=== PATIENT | female | born 1940 | race Caucasian/White ===

== ENCOUNTER 2018-02-24 13:34 | Inpatient (IN) | payer MEDICARE ==
[~2018-02-24] VITALS: Ht 160 cm; Wt 56.2 kg
[~2018-02-24 13:34] MED LIST: ACET325T53 PO; ASPI-605 PO; ATOR10TA PO; DESV25TA PO; ENOX40DI SQ; ESZO3TAB27 PO; HYDR-3326 PO; HYDR-548 PO; MAGN400O6 PO; PANT40TA2 PO
[2018-02-24] MEDS ORDERED: Z GUARD REMEDY PASTE 57 GM TUBE TOP PRN (15:45)
[2018-02-24 16:34] VITALS: BP 115/79
[2018-02-24] MEDS: HYDROCODONE/APAP 10-325 MG TABLET PO PRN (18:25)
[2018-02-24] MEDS: MAGNESIUM HYDROXIDE 30 ML LIQUID UDC PO PRN (18:25)
[2018-02-24 20:08] VITALS: BP 122/77
[2018-02-24] MEDS: DOCUSATE SODIUM 100 MG CAPSULE PO SCH (21:04)
[2018-02-24] MEDS: ATORVASTATIN 10 MG TABLET PO SCH (21:04)
[2018-02-25 05:00] VITALS: BP 130/74
[2018-02-25] MEDS: PANTOPRAZOLE SODIUM 40 MG TABLET.DR PO SCH (06:39)
[2018-02-25] MEDS: ACETAMINOPHEN 325 MG TABLET PO PRN (06:41)
[2018-02-25 09:00] VITALS: BP 129/69
[2018-02-25] MEDS ORDERED: ENOXAPARIN SODIUM 40 MG/0.4 ML DISP.SYRIN SQ SCH (09:00)
[2018-02-25] MEDS: ASPIRIN EC 81 MG TABLET.DR PO SCH (09:09)
[2018-02-25] MEDS: HYDROCODONE/APAP 10-325 MG TABLET PO PRN ×2 (09:19→20:27)
[2018-02-25] MEDS ORDERED: LACTULOSE 20 G/30 ML LIQUID UDC PO PRN (16:00)
[2018-02-25 16:06] VITALS: BP 129/78
[2018-02-25] MEDS: SENNOSIDES 1 TABLET PO PRN (17:30)
[2018-02-25 19:36] VITALS: BP 136/72
[2018-02-25] MEDS: ATORVASTATIN 10 MG TABLET PO SCH (20:22)
[2018-02-25] MEDS: DOCUSATE SODIUM 100 MG CAPSULE PO SCH (20:32)
[2018-02-26 05:30] VITALS: BP 110/74
[2018-02-26] MEDS: PANTOPRAZOLE SODIUM 40 MG TABLET.DR PO SCH (06:15)
[2018-02-26] MEDS: ACETAMINOPHEN 325 MG TABLET PO PRN (06:16)
[2018-02-26] MEDS: SENNOSIDES 1 TABLET PO PRN (06:16)
[2018-02-26] MEDS: ASPIRIN EC 81 MG TABLET.DR PO SCH (09:19)
[2018-02-26] MEDS: HYDROCODONE/APAP 10-325 MG TABLET PO PRN ×2 (09:19→21:25)
[2018-02-26 09:23] VITALS: BP 115/74
[2018-02-26] MEDS: HYDROCODONE/APAP 5-325MG TABLET PO PRN (14:04)
[2018-02-26] MEDS: MAGNESIUM HYDROXIDE 30 ML LIQUID UDC PO PRN (14:04)
[2018-02-26 16:10] VITALS: BP 113/74
[2018-02-26] MEDS: RIVAROXABAN 10 MG TABLET PO SCH (17:49)
[2018-02-26 20:10] VITALS: BP 126/71
[2018-02-26] MEDS: DOCUSATE SODIUM 100 MG CAPSULE PO SCH (21:00)
[2018-02-26] MEDS: ATORVASTATIN 10 MG TABLET PO SCH (21:23)
[2018-02-27 05:00] VITALS: BP 117/66
[2018-02-27] MEDS: PANTOPRAZOLE SODIUM 40 MG TABLET.DR PO SCH (06:43)
[2018-02-27] MEDS: ASPIRIN EC 81 MG TABLET.DR PO SCH (08:12)
[2018-02-27 08:18] VITALS: BP 109/67
[2018-02-27] MEDS ORDERED: diphenhydrAMINE 1% CREAM 28.3 GM TUBE TP PRN (12:30)
[2018-02-27] MEDS: HYDROCODONE/APAP 5-325MG TABLET PO PRN ×2 (13:41→21:25)
[2018-02-27] MEDS: RIVAROXABAN 10 MG TABLET PO SCH (17:02)
[2018-02-27 20:09] VITALS: BP 125/74
[2018-02-27] MEDS: ATORVASTATIN 10 MG TABLET PO SCH (20:20)
[2018-02-27] MEDS: DOCUSATE SODIUM 100 MG CAPSULE PO SCH (20:20)
[2018-02-28] MEDS: HYDROCODONE/APAP 10-325 MG TABLET PO PRN ×3 (02:33→20:28)
[2018-02-28] MEDS: diphenhydrAMINE 1% CREAM 28.3 GM TUBE TP PRN (02:35)
[2018-02-28 03:35] VITALS: BP 114/75
[2018-02-28] MEDS: PANTOPRAZOLE SODIUM 40 MG TABLET.DR PO SCH (06:16)
[2018-02-28] MEDS: ACETAMINOPHEN 325 MG TABLET PO PRN (08:46)
[2018-02-28] MEDS: BISACODYL 5 MG TABLET.DR PO PRN (08:46)
[2018-02-28] MEDS: SENNOSIDES 1 TABLET PO PRN (08:47)
[2018-02-28] MEDS: ASPIRIN EC 81 MG TABLET.DR PO SCH (08:47)
[2018-02-28 09:01] VITALS: BP 105/71
[2018-02-28 12:45] LABS: EOSINOPHILS # (AUTO) 0.2 K/uL (0.0-0.7); LYMPHOCYTES # (AUTO) 1.9 K/uL (20.0-40.0); MONOCYTES % (AUTO) 9.4 % (0.0-11.0); RED BLOOD CELL COUNT(AUTO) 3.58 MIL/uL (3.63-4.92)
[2018-02-28 12:47] LABS: ALANINE AMINOTRANSFERASE 106 U/L (14-59); ALKALINE PHOSPHATASE 51 U/L (50-136); ASPARTATE AMINOTRANSFERASE 54 U/L (15-37); BILIRUBIN,TOTAL 0.4 mg/dL (0.2-1.0); CARBON DIOXIDE 29 mmol/L (21-32); CHLORIDE 107 mmol/L (98-107); CREATININE 0.6 mg/dL (0.6-1.3); GLUCOSE 171 mg/dL (74-106); PHOSPHOROUS 3.8 mg/dL (2.5-4.9); POTASSIUM 4.8 mmol/L (3.5-5.1); TOTAL PROTEIN, SERUM 5.8 g/dL (6.4-8.2); UREA NITROGEN, BLOOD 16 mg/dL (7-18)
[2018-02-28 13:21] LABS: BASOPHILS % (AUTO) 0.3 % (0.0-2.0); EOSINOPHILS % (AUTO) 1.6 % (0.0-7.0); HEMATOCRIT 33.6 % (31.2-41.9); HEMOGLOBIN 11.4 g/dL (10.9-14.3); LYMPHOCYTES % (AUTO) 17.1 % (20.5-51.5); MEAN CORPUSCULAR HEMOGLOBIN 31.9 uug (24.7-32.8); MEAN CORPUSCULAR HGB CONC 34 g/dL (32.3-35.6); MEAN CORPUSCULAR VOLUME 93.8 fL (75.5-95.3); NEUTROPHILS % (AUTO) 71.6 % (38.5-71.5); WHITE BLOOD COUNT (AUTO) 11.1 K/uL (3.8-11.8)
[2018-02-28 13:22] LABS: PLATELET COUNT (AUTO) 411 K/uL (179-408)
[2018-02-28 15:46] VITALS: BP 111/51
[2018-02-28 16:35] LABS: THYROID STIMULATING HORMONE 2.24 mIU/mL (0.358-3.740)
[2018-02-28] MEDS: RIVAROXABAN 10 MG TABLET PO SCH (17:12)
[2018-02-28 20:18] VITALS: BP 125/65
[2018-02-28] MEDS: ATORVASTATIN 10 MG TABLET PO SCH (20:27)
[2018-02-28] MEDS: DOCUSATE SODIUM 100 MG CAPSULE PO SCH (20:27)
[2018-03-01] MEDS: ACETAMINOPHEN 325 MG TABLET PO PRN ×2 (04:17→14:50)
[2018-03-01 05:21] VITALS: BP 109/64
[2018-03-01] MEDS: PANTOPRAZOLE SODIUM 40 MG TABLET.DR PO SCH (06:13)
[2018-03-01] MEDS: ASPIRIN EC 81 MG TABLET.DR PO SCH (09:08)
[2018-03-01 09:38] VITALS: BP 96/63
[2018-03-01] MEDS: HYDROCODONE/APAP 5-325MG TABLET PO PRN (09:55)
[2018-03-01] MEDS: BISACODYL 5 MG TABLET.DR PO PRN (09:55)
[2018-03-01 10:37] LABS: *BILIRUBIN,URIN NEGATIVE (NEGATIVE); *BLOOD, URINE 3+ (NEGATIVE); *CLARITY,URINE CLOUDY (CLEAR); *COLOR,URINE YELLOW (YELLOW); *KETONES,URINE NEGATIVE (NEGATIVE); *PROTEIN,URINE 1+ (NEGATIVE); *UROBILINOGEN,URINE 0.2 E.U./dl (NORMAL); LEUKOCYTE ESTERASE ,URINE 3+ (NEGATIVE); NITRITE, URINE NEGATIVE (NEGATIVE); UGLUCOSE NEGATIVE (NEGATIVE)
[2018-03-01 10:51] LABS: SQUAMOUS EPITHELIAL CELL,UR FEW /HPF (NONE SEEN); WBC,URINE TNTC /HPF (0-3)
[2018-03-01 10:52] LABS: BACTERIA,URINE MODERATE /HPF (NONE SEEN)
[2018-03-01] MEDS: CLOTRIMAZOLE 1% CREAM 30 GM TUBE TOP SCH ×2 (12:11→20:37)
[2018-03-01 15:47] VITALS: BP 117/83
[2018-03-01] MEDS: RIVAROXABAN 10 MG TABLET PO SCH (17:11)
[2018-03-01] MEDS: HYDROCODONE/APAP 10-325 MG TABLET PO PRN (20:28)
[2018-03-01] MEDS: DOCUSATE SODIUM 100 MG CAPSULE PO SCH (20:28)
[2018-03-01] MEDS: ATORVASTATIN 10 MG TABLET PO SCH (20:28)
[2018-03-01] MEDS: diphenhydrAMINE 1% CREAM 28.3 GM TUBE TP PRN (20:30)
[2018-03-01 20:34] VITALS: BP 116/59
[2018-03-02] MEDS: ACETAMINOPHEN 325 MG TABLET PO PRN (03:52)
[2018-03-02 05:00] VITALS: BP 111/62
[2018-03-02] MEDS: PANTOPRAZOLE SODIUM 40 MG TABLET.DR PO SCH (06:06)
[2018-03-02 08:00] VITALS: BP 106/80
[2018-03-02] MEDS: HYDROCODONE/APAP 5-325MG TABLET PO PRN (08:32)
[2018-03-02] MEDS: ASPIRIN EC 81 MG TABLET.DR PO SCH (08:32)
[2018-03-02] MEDS: CLOTRIMAZOLE 1% CREAM 30 GM TUBE TOP SCH ×2 (08:33→20:38)
[2018-03-02 16:00] VITALS: BP 119/62
[2018-03-02] MEDS: RIVAROXABAN 10 MG TABLET PO SCH (17:14)
[2018-03-02 19:49] VITALS: BP 157/71
[2018-03-02] MEDS ORDERED: LEVOFLOXACIN 500 MG TABLET PO ONE (20:00)
[2018-03-02] MEDS: ATORVASTATIN 10 MG TABLET PO SCH (20:38)
[2018-03-02] MEDS: ACIDOPHILUS/BULGARICUS CHEW TAB PO SCH (20:38)
[2018-03-02] MEDS: DOCUSATE SODIUM 100 MG CAPSULE PO SCH (20:39)
[2018-03-02] MEDS: HYDROCODONE/APAP 10-325 MG TABLET PO PRN (20:41)
[2018-03-03] MEDS: HYDROCODONE/APAP 5-325MG TABLET PO PRN ×2 (00:31→08:20)
[2018-03-03] MEDS: ACETAMINOPHEN 325 MG TABLET PO PRN ×2 (05:33→15:03)
[2018-03-03 05:41] VITALS: BP 117/75
[2018-03-03] MEDS: PANTOPRAZOLE SODIUM 40 MG TABLET.DR PO SCH (06:09)
[2018-03-03 07:22] LABS: BASOPHILS # (AUTO) 0.1 K/uL (0.0-8.0); BASOPHILS % (AUTO) 0.4 % (0.0-2.0); EOSINOPHILS # (AUTO) 0.1 K/uL (0.0-0.7); EOSINOPHILS % (AUTO) 0.7 % (0.0-7.0); HEMOGLOBIN 12.4 g/dL (10.9-14.3); LYMPHOCYTES # (AUTO) 2.2 K/uL (20.0-40.0); LYMPHOCYTES % (AUTO) 15.1 % (20.5-51.5); MEAN CORPUSCULAR HEMOGLOBIN 31.8 uug (24.7-32.8); MEAN CORPUSCULAR HGB CONC 34 g/dL (32.3-35.6); MEAN CORPUSCULAR VOLUME 94.7 fL (75.5-95.3); MONOCYTES # (AUTO) 1.1 K/uL (2.0-10.0); MONOCYTES % (AUTO) 7.9 % (0.0-11.0); NEUTROPHILS # (AUTO) 10.8 K/uL (1.8-8.9); NEUTROPHILS % (AUTO) 75.9 % (38.5-71.5); PLATELET COUNT (AUTO) 610 K/uL (179-408); RED BLOOD CELL COUNT(AUTO) 3.91 MIL/uL (3.63-4.92); WHITE BLOOD COUNT (AUTO) 14.3 K/uL (3.8-11.8)
[2018-03-03 07:45] LABS: ALANINE AMINOTRANSFERASE 105 U/L (14-59); ALKALINE PHOSPHATASE 52 U/L (50-136); ASPARTATE AMINOTRANSFERASE 41 U/L (15-37); BILIRUBIN,TOTAL 0.5 mg/dL (0.2-1.0); CARBON DIOXIDE 31 mmol/L (21-32); CHLORIDE 108 mmol/L (98-107); CREATININE 0.8 mg/dL (0.6-1.3); GLUCOSE 138 mg/dL (74-106); MAGNESIUM 2.1 mg/dL (1.8-2.4); PHOSPHOROUS 3.1 mg/dL (2.5-4.9); POTASSIUM 4.6 mmol/L (3.5-5.1); TOTAL PROTEIN, SERUM 6.7 g/dL (6.4-8.2); UREA NITROGEN, BLOOD 13 mg/dL (7-18)
[2018-03-03 08:00] VITALS: BP 105/67
[2018-03-03] MEDS: CLOTRIMAZOLE 1% CREAM 30 GM TUBE TOP SCH ×2 (08:20→20:26)
[2018-03-03] MEDS: ASPIRIN EC 81 MG TABLET.DR PO SCH (08:20)
[2018-03-03] MEDS: ACIDOPHILUS/BULGARICUS CHEW TAB PO SCH ×2 (08:20→20:22)
[2018-03-03] MEDS: MAGNESIUM HYDROXIDE 30 ML LIQUID UDC PO PRN (15:03)
[2018-03-03 15:48] VITALS: BP 113/59
[2018-03-03] MEDS: RIVAROXABAN 10 MG TABLET PO SCH (17:53)
[2018-03-03] MEDS ORDERED: LEVOFLOXACIN 250 MG TABLET PO SCH (20:00)
[2018-03-03 20:22] VITALS: BP 98/48
[2018-03-03] MEDS: ATORVASTATIN 10 MG TABLET PO SCH (20:23)
[2018-03-03] MEDS: HYDROCODONE/APAP 10-325 MG TABLET PO PRN (20:23)
[2018-03-03] MEDS: DOCUSATE SODIUM 100 MG CAPSULE PO SCH (20:23)
[2018-03-03 21:01] VITALS: BP 110/55
[2018-03-04] MEDS: ACETAMINOPHEN 325 MG TABLET PO PRN ×2 (01:50→15:45)
[2018-03-04 05:54] VITALS: BP 105/68
[2018-03-04] MEDS: PANTOPRAZOLE SODIUM 40 MG TABLET.DR PO SCH (06:19)
[2018-03-04 08:00] VITALS: BP 104/71
[2018-03-04] MEDS: ASPIRIN EC 81 MG TABLET.DR PO SCH (08:55)
[2018-03-04] MEDS: CLOTRIMAZOLE 1% CREAM 30 GM TUBE TOP SCH ×2 (08:55→20:24)
[2018-03-04] MEDS: HYDROCODONE/APAP 5-325MG TABLET PO PRN (08:55)
[2018-03-04] MEDS: ACIDOPHILUS/BULGARICUS CHEW TAB PO SCH ×2 (08:55→20:24)
[2018-03-04] MEDS: CEPHALEXIN MONOHYDRATE 500 MG CAPSULE PO SCH ×2 (15:17→21:13)
[2018-03-04 16:36] VITALS: BP 91/55
[2018-03-04] MEDS: RIVAROXABAN 10 MG TABLET PO SCH (18:44)
[2018-03-04 20:13] VITALS: BP 121/62
[2018-03-04] MEDS: DOCUSATE SODIUM 100 MG CAPSULE PO SCH (20:24)
[2018-03-04] MEDS: ATORVASTATIN 10 MG TABLET PO SCH (20:24)
[2018-03-04] MEDS: HYDROCODONE/APAP 10-325 MG TABLET PO PRN (21:13)
[2018-03-05 05:36] VITALS: BP 108/63
[2018-03-05] MEDS: CEPHALEXIN MONOHYDRATE 500 MG CAPSULE PO SCH ×2 (06:14→13:06)
[2018-03-05] MEDS: PANTOPRAZOLE SODIUM 40 MG TABLET.DR PO SCH (06:14)
[2018-03-05] MEDS: ACIDOPHILUS/BULGARICUS CHEW TAB PO SCH (08:41)
[2018-03-05] MEDS: CLOTRIMAZOLE 1% CREAM 30 GM TUBE TOP SCH (08:42)
[2018-03-05] MEDS: ASPIRIN EC 81 MG TABLET.DR PO SCH (08:42)
[2018-03-05] MEDS: HYDROCODONE/APAP 5-325MG TABLET PO PRN (08:42)
== END 2018-03-05 14:30 | disposition home health service (06) | DRG 560 ==
PROVIDERS: ADMIT Physical Medicine & Rehabilitation Pain Medicine; ATTEND Physical Medicine & Rehabilitation Pain Medicine
DX: Z47.1 Aftercare following joint replacement surgery (principal); N39.0 Urinary tract infection, site not specified; D68.59 Other primary thrombophilia; I45.2 Bifascicular block; Z96.642 Presence of left artificial hip joint; E78.5 Hyperlipidemia, unspecified; F32.9 Major depressive disorder, single episode, unspecified; G47.00 Insomnia, unspecified; M81.0 Age-related osteoporosis without current pathological fracture; Z85.118 Personal history of other malignant neoplasm of bronchus and lung; Z96.611 Presence of right artificial shoulder joint; R26.2 Difficulty in walking, not elsewhere classified; B96.20 Unspecified Escherichia coli [E. coli] as the cause of diseases classified elsewhere; F03.90 Unspecified dementia, unspecified severity, without behavioral disturbance, psychotic disturbance, mood disturbance, and anxiety; F17.210 Nicotine dependence, cigarettes, uncomplicated; Z91.81 History of falling; R73.9 Hyperglycemia, unspecified; R74.0 Nonspecific elevation of levels of transaminase and lactic acid dehydrogenase [LDH]; Z88.1 Allergy status to other antibiotic agents; Z90.2 Acquired absence of lung [part of]; I35.8 Other nonrheumatic aortic valve disorders
CPT/HCPCS: 36415; 73502; 83735; 84100; 84443; 85025; 87077; 87086; 92523; 92526; 92610; 93307; 97110; 97112; 97116; 97165; 97530; 97535; J1650